=== PATIENT | male | born 1980 | race Caucasian/White ===

== ENCOUNTER 2017-12-03 08:16 | Emergency (ER) | payer SELFPAY ==
[~2017-12-03] VITALS: Ht 175.3 cm; Wt 66.5 kg
[2017-12-03 08:23] VITALS: BP 125/106; TEMP 98.2
[2017-12-03] MEDS ORDERED: NEURONTIN800 MG/TAB PO (08:28)
[2017-12-03 09:11] LABS: BASO % 0.4 % (0.0-2.0); EOS # 0.1 (0.0-0.7); EOS % 1.7 % (0-4.0); GRAN # 4.3 (1.4-6.5); GRAN % 59.7 % (42.2-75.2); HEMATOCRIT 44.9 % (42.0-52.0); LYMPH % 27.1 % (20.0-51.0); MEAN CELL VOLUME 91 fl (80.0-100.0); MEAN CORPUSCULAR HEMOGLOBIN 31 pg (27.0-31.0); MEAN CORPUSCULAR HGB CONC 33 g/dl (33.0-37.0); MEAN PLATELET VOLUME 9.5 fl (7.4-10.4); MONO # 0.8 (0.1-0.6); MONO % 10.8 % (1.7-9.3); PLATELET COUNT 244 K/mm3 (130-400); RED BLOOD COUNT 4.91 M/mm3 (4.20-5.60); REDCELL DISTRIBUTION WIDTH-CV 13.3 % (11.5-14.5)
[2017-12-03 09:23] LABS: ALBUMIN 4.5 gm/dL (3.5-5.0); BILIRUBIN,TOTAL 0.7 mg/dL (0.0-1.0); C-REACTIVE PROTEIN 1.2 mg/dL (0.0-0.9); CREATININE, serum 0.88 mg/dL (0.66-1.25); POTASSIUM 4.2 mmol/L (3.4-5.0); TOTAL PROTEIN 7.2 gm/dL (6.4-8.2)
[2017-12-03 09:39] LABS: HIV 1/2 Antibodies Non-Reactive; HIV-1p24 Antigen Non-Reactive
[2017-12-03] MEDS ORDERED: VOLTAREN 75 DR75 MG PO (09:49)
[2017-12-03 10:20] VITALS: PULSE 116
== END 2017-12-03 10:20 | disposition home or self-care (01) ==
LOC: COL.ER 08:16
PROVIDERS: Emergency Medicine
DX: M25.542 Pain in joints of left hand (principal); M25.541 Pain in joints of right hand; Z87.891 Personal history of nicotine dependence

== ENCOUNTER 2017-12-17 11:04 | Emergency (ER) | payer SELFPAY ==
[~2017-12-17] VITALS: Ht 175.3 cm; Wt 61.4 kg
[~2017-12-17 11:04] MED LIST: NEURONTIN800 MG/TAB PO; VOLTAREN 75 DR75 MG PO
[2017-12-17 11:09] VITALS: BP 143/76; TEMP 98.8
[2017-12-17 12:51] VITALS: PULSE 85
== END 2017-12-17 12:51 | disposition home or self-care (01) ==
LOC: COL.ER 11:04
DX: Z76.0 Encounter for issue of repeat prescription (principal); F32.9 Major depressive disorder, single episode, unspecified; F41.9 Anxiety disorder, unspecified; Z87.891 Personal history of nicotine dependence

== ENCOUNTER 2018-05-30 19:00 | Emergency (ER) | payer SELFPAY ==
[~2018-05-30] VITALS: Ht 177.8 cm; Wt 65.9 kg
[2018-05-30] MEDS ORDERED: BACTRIM DS 8001 TAB PO (19:59)
[2018-05-30 20:08] VITALS: BP 140/89; PULSE 112; TEMP 97.6
== END 2018-05-30 20:08 | disposition home or self-care (01) ==
LOC: COL.ER 19:00
DX: L08.9 Local infection of the skin and subcutaneous tissue, unspecified (principal); F17.210 Nicotine dependence, cigarettes, uncomplicated

== ENCOUNTER 2018-06-15 14:41 | Emergency (ER) | payer SELFPAY ==
[~2018-06-15] VITALS: Ht 177.8 cm; Wt 65.9 kg
[~2018-06-15 14:41] MED LIST changes: +BACTRIM DS 8001 TAB PO
[2018-06-15 14:50] VITALS: BP 140/88; PULSE 98; TEMP 98.7
== END 2018-06-15 15:34 | disposition home or self-care (01) ==
LOC: COL.ER 14:41
DX: L02.214 Cutaneous abscess of groin (principal); F17.210 Nicotine dependence, cigarettes, uncomplicated

== ENCOUNTER 2019-04-12 18:56 | Emergency (ER) | payer SELFPAY ==
[~2019-04-12] VITALS: Ht 175.3 cm; Wt 72.7 kg
[2019-04-12 19:03] VITALS: TEMP 98.3
[2019-04-12] MEDS ORDERED: BACTRIM DS 8001 TAB PO (19:56)
[2019-04-12 20:18] VITALS: BP 132/91; PULSE 108
== END 2019-04-12 20:20 | disposition home or self-care (01) ==
LOC: COL.ER 18:56
DX: S70.362A Insect bite (nonvenomous), left thigh, initial encounter (principal); L08.9 Local infection of the skin and subcutaneous tissue, unspecified; F41.9 Anxiety disorder, unspecified; Z87.891 Personal history of nicotine dependence; W57.XXXA Bitten or stung by nonvenomous insect and other nonvenomous arthropods, initial encounter

== ENCOUNTER 2020-03-19 17:26 | Emergency (ER) | payer SELFPAY ==
[~2020-03-19] VITALS: Ht 177.8 cm; Wt 70.5 kg
[2020-03-19 17:34] VITALS: TEMP 98.3
[2020-03-19 18:52] LABS: BASO % 0.4 % (0.0-2.0); EOS # 0.1 (0.0-0.7); EOS % 1.8 % (0-4.0); GRAN # 4.3 (1.4-6.5); GRAN % 54.4 % (42.2-75.2); HEMATOCRIT 42.4 % (42.0-52.0); LYMPH # 2.7 (1.2-3.4); LYMPH % 33.5 % (20.0-51.0); MEAN CELL VOLUME 90 fl (80.0-100.0); MEAN CORPUSCULAR HEMOGLOBIN 30 pg (27.0-31.0); MEAN CORPUSCULAR HGB CONC 33 g/dl (33.0-37.0); MEAN PLATELET VOLUME 9.2 fl (7.4-10.4); MONO # 0.8 (0.1-0.6); MONO % 9.5 % (1.7-9.3); PLATELET COUNT 276 K/mm3 (130-400); REDCELL DISTRIBUTION WIDTH-CV 12.8 % (11.5-14.5)
[2020-03-19 19:12] LABS: ALBUMIN 4.1 gm/dL (3.5-5.0); BILIRUBIN,TOTAL 0.8 mg/dL (0.0-1.0); C-REACTIVE PROTEIN 1.7 mg/dL (0.0-0.9); CALCIUM 9.1 mg/dL (8.4-10.2); CREATININE, serum 0.85 (0.66-1.25); POTASSIUM 3.7 mmol/L (3.4-5.0); TOTAL PROTEIN 8.5 gm/dL (6.4-8.2); URIC ACID 6.1 mg/dL (3.5-8.5)
[2020-03-19 19:28] LABS: ERYTHROCYTE SEDIMENTATION RATE 20 mm/hr (0-15)
[2020-03-19] MEDS ORDERED: DOXYCYCLINE 10100 MG PO (20:01)
[2020-03-19 20:30] VITALS: BP 128/88; PULSE 82
== END 2020-03-19 20:30 | disposition home or self-care (01) ==
LOC: COL.ER 17:26
PROVIDERS: Physician Assistant
DX: M25.572 Pain in left ankle and joints of left foot (principal)
CPT/HCPCS: J0696; J1885; J7030

== ENCOUNTER 2020-06-08 11:08 | Emergency (ER) | payer SELFPAY ==
[~2020-06-08] VITALS: Ht 177.8 cm; Wt 70.5 kg
[~2020-06-08 11:08] MED LIST changes: +DOXYCYCLINE 10100 MG PO
[2020-06-08 11:12] VITALS: BP 129/85; TEMP 98
[2020-06-08] MEDS ORDERED: IBU800 M1 PO (13:37)
[2020-06-08] MEDS ORDERED: BACTRIM DS 8001 TAB PO (13:37)
[2020-06-08 14:11] VITALS: PULSE 114
== END 2020-06-08 14:12 | disposition home or self-care (01) ==
LOC: COL.ER 11:08
DX: S41.122A Laceration with foreign body of left upper arm, initial encounter (principal); L08.9 Local infection of the skin and subcutaneous tissue, unspecified; G89.29 Other chronic pain; M25.572 Pain in left ankle and joints of left foot; M25.571 Pain in right ankle and joints of right foot; Y28.2XXA Contact with sword or dagger, undetermined intent, initial encounter; Y92.009 Unspecified place in unspecified non-institutional (private) residence as the place of occurrence of the external cause

== ENCOUNTER 2021-04-20 07:53 | Emergency (ER) | payer OTHER ==
[~2021-04-20] VITALS: Ht 175.3 cm; Wt 84.1 kg
[~2021-04-20 07:53] MED LIST changes: +IBU800 M1 PO
[2021-04-20 07:54] VITALS: TEMP 97.9
[2021-04-20 08:25] LABS: BASO % 0.5 % (0.0-2.0); EOS # 0.1 (0.0-0.7); EOS % 1.6 % (0-4.0); GRAN # 3.2 (1.4-6.5); GRAN % 52.8 % (42.2-75.2); HEMATOCRIT 43.7 % (42.0-52.0); HEMOGLOBIN 14.3 g/dl (13.5-18.0); LYMPH # 2.1 (1.2-3.4); LYMPH % 33.9 % (20.0-51.0); MEAN CELL VOLUME 94 fl (80.0-100.0); MEAN CORPUSCULAR HEMOGLOBIN 31 pg (27.0-31.0); MEAN CORPUSCULAR HGB CONC 33 g/dl (33.0-37.0); MONO # 0.6 (0.1-0.6); MONO % 10.5 % (1.7-9.3); PLATELET COUNT 181 K/mm3 (130-400); RED BLOOD COUNT 4.65 M/mm3 (4.20-5.60); REDCELL DISTRIBUTION WIDTH-CV 13.1 % (11.5-14.5)
[2021-04-20 08:37] LABS: ALANINE AMINOTRANSFERASE 143 U/L (4-49); ALKALINE PHOSPHATASE 114 U/L (50-136); ANION GAP 6 mmol/L (7-16); AST,SGOT 74 U/L (15-37); BILIRUBIN,TOTAL 0.4 mg/dL (0.0-1.0); BLOOD UREA NITROGEN 18 mg/dL (9-20); CALCIUM 8.7 mg/dL (8.4-10.2); CARBON DIOXIDE 30 mmol/L (22-30); CHLORIDE 105 mmol/L (98-107); CREATININE, serum 1.14 (0.66-1.25); GLUCOSE 113 mg/dL (74-106); LIPASE 96 U/L (23-300); POTASSIUM 4.1 mmol/L (3.4-5.0); PROTHROMBIN TIME 10.7 SECONDS (9.7-12.8); SODIUM 141 mmol/L (137-145); TOTAL PROTEIN 6.9 gm/dL (6.4-8.2)
[2021-04-20 09:07] LABS: TROPONIN-I < 0.012 ng/mL (0.000-0.035)
[2021-04-20 09:19] VITALS: BP 114/86; PULSE 94
== END 2021-04-20 09:18 | disposition home or self-care (01) ==
LOC: COL.ER 07:53
PROVIDERS: Emergency Medicine
DX: R10.11 Right upper quadrant pain (principal); F17.290 Nicotine dependence, other tobacco product, uncomplicated; Z86.19 Personal history of other infectious and parasitic diseases

== ENCOUNTER 2022-05-30 09:09 | Emergency (ER) | payer BC, OTHER ==
[~2022-05-30] VITALS: Ht 175.3 cm; Wt 79.3 kg
[2022-05-30] MEDS ORDERED: BUSPAR DIVIDOSE15 MG (09:51)
[2022-05-30 10:15] LABS: BASO % 0.5 % (0.0-2.0); EOS # 0.1 K/mm3 (0.0-0.7); GRAN % 48.4 % (42.2-75.2); HEMATOCRIT 44.2 % (42.0-52.0); HEMOGLOBIN 15.5 g/dl (13.5-18.0); LYMPH # 2.4 K/mm3 (1.2-3.4); MEAN CELL VOLUME 88 fl (80.0-100.0); MEAN CORPUSCULAR HEMOGLOBIN 31 pg (27-31); MEAN CORPUSCULAR HGB CONC 35 g/dl (33.0-37.0); MEAN PLATELET VOLUME 10.1 fl (7.4-10.4); MONO # 0.5 K/mm3 (0.1-0.6); MONO % 8.9 % (1.7-9.3); PLATELET COUNT 191 K/mm3 (130-400); REDCELL DISTRIBUTION WIDTH-CV 13.4 % (11.5-14.5)
[2022-05-30 10:35] LABS: ALANINE AMINOTRANSFERASE 267 U/L (0-55); ALKALINE PHOSPHATASE 107 U/L (40-150); ANION GAP 8 mmol/L (7-16); AST,SGOT 124 U/L (5-34); BILIRUBIN,TOTAL 0.6 mg/dL (0.2-1.2); BLOOD UREA NITROGEN 13 mg/dL (9-21); CARBON DIOXIDE 24 mmol/L (22-29); CHLORIDE 109 mmol/L (98-107); CREATININE, serum 1.02 mg/dL (0.72-1.25); GLUCOSE 98 mg/dL (70-99); LIPASE 40 U/L (8-78); POTASSIUM 3.7 mmol/L (3.5-4.5); SODIUM 141 mmol/L (136-145); TOTAL PROTEIN 6.9 gm/dL (6.2-8.1)
[2022-05-30 10:37] LABS: ACETAMINOPHEN < 1.0 ug/mL (10-30); ALCOHOL(ethanol),MEDICAL < 10 mg/dL (0-10); SALICYLATE < 5.0 mg/dL (15.0-30.0)
[2022-05-30 10:43] LABS: TROPONIN-I < 0.010 ng/mL (0.00-0.033)
[2022-05-30 11:37] LABS: COLLECTION METHOD RANDOM VOIDED
[2022-05-30 11:45] LABS: MUCOUS Present (NOT PRESENT); PH 6 (5-8); SQUAMOUS EPITHELIAL None Seen /hpf (0-10); URINE APPEARANCE Clear (CLEAR/HAZY); URINE BACTERIA None Seen /hpf (NONE SEEN); URINE BLOOD Negative (NEGATIVE); URINE COLOR Yellow (YELLOW); URINE GLUCOSE Negative (NEGATIVE); URINE KETONE Negative (NEGATIVE); URINE NITRATE Negative (NEGATIVE); URINE PROTEIN(semi-quant) Negative (NEGATIVE); URINE RBC 0-2 /hpf (0-2); URINE UROBILINOGEN >=4.0 (NEGATIVE)
[2022-05-30 11:54] LABS: TRICYCLIC ANTIDEPRESS URINE NEGATIVE
[2022-05-30 12:24] VITALS: BP 122/89; PULSE 73; TEMP 98
== END 2022-05-30 12:24 | disposition home or self-care (01) ==
LOC: COL.ER 09:09
PROVIDERS: Physician Assistant
DX: R07.89 Other chest pain (principal); R74.01 Elevation of levels of liver transaminase levels; Z20.822 Contact with and (suspected) exposure to COVID-19; Z87.891 Personal history of nicotine dependence; Z28.310 Unvaccinated for COVID-19
CPT/HCPCS: J7030